=== PATIENT | male | born 1995 | race African-American/Black ===

== ENCOUNTER 2016-11-08 09:07 | Emergency (ER) | payer SELFPAY ==
--- NOTE | 2016-11-08 09:53 | ED Physician Documentation ---
General Adult - HISTORIAN Historian: patient - HPI Chief Complaint: Fever Onset: days ago (3) Timing: still present Further Comments: yes (3 days history of body aches, has felt hot, having some chills, cough productive of yellow phlegm.) - ROS CONST: fever, chills EYES/ENT: none CVS/RESP: cough GI/: none MS/SKIN/LYMPH: joint pain, other (muscle aches) - PAST HX Past History: other (allergic rhinnits) Surgeries/Procedures: none Immunizations: referred to PCP - SOCIAL HX Smoking History: non-smoker Alcohol Use: none Drug Use: none - FAMILY HX Family History: No - REVIEWED ASSESSMENTS Nursing Assessment Reviewed: Yes Vitals Reviewed: Yes ED Results Lab/Radiology - Lab Results Lab Results: Lab Results 11/08/16 09:20 Influenza Type A Ag Positive H (NEGATIVE) Influenza Type B Ag Negative (NEGATIVE) - Orders Orders: ED Orders Category Date Time Status INFLUENZA A&B Stat Lab 11/08/16 09:20 Completed General Adult Physical Exam - PHYSICAL EXAM GENERAL APPEARANCE: mild distress EENT: eye inspection normal, ENT inspection normal, pharyngeal erythema (mild) NECK: normal inspection, supple. No: stiff neck, Kernig's RESPIRATORY: no resp distress, chest non-tender, breath sounds normal. No: wheezes, rales, rhonchi CVS: reg rate & rhythm, heart sounds normal, equal pulses, no murmur, no gallop ABDOMEN: soft, no organomegaly, normal bowel sounds, no abdominal bruit, no distension, non-tender SKIN: warm/dry, normal color EXTREMITIES: non-tender NEURO: oriented X3, mood/affect nml, cognition normal Discharge Clincal Impression: Influenza A, Dehydration, mild Referrals: Primary Doctor,No [Primary Care Provider] - 2 Days Additional Instructions: Drink a lot of fluids. Drink enough fluids to keep urine a light color. Watch for increasing breathing problems. If you have any other problems to call, see your primary care provider or return tot he ED. Do not take any aspirin. Condition: Stable Disposition: 01 HOME, SELF-CARE Decision to Admit: NO Date of Decison to Admit: 11/08/16 Decision Time: 10:38
[2016-11-08 10:04] LABS: APPEARANCE,URINE Clear (CLEAR); COLOR,URINE Yellow (YELLOW); OCCULT BLOOD,URINE Negative (NEGATIVE)
[2016-11-08 10:13] LABS: AMORPHOUS SEDIMENT,UR FEW (NEGATIVE)
[2016-11-08 11:36] VITALS: BP 139/76
== END 2016-11-08 11:01 | disposition home or self-care (01) ==
LOC: ED 09:07
DX: J11.1 Influenza due to unidentified influenza virus with other respiratory manifestations (principal); E86.0 Dehydration
CPT/HCPCS: 81002; 87400; 99283